=== PATIENT | female | born 2000 | race Caucasian/White ===

== ENCOUNTER 2023-06-28 20:09 | Emergency (ER) | payer SELFPAY ==
[2023-06-28 20:10] VITALS: BP 127/82; PULSE 91; RESP 16; TEMP 36.6; O2SAT 98; BMI 21.4
--- NOTE | 2023-06-28 20:58 | EDS_ITS ---
HPI HPI - GI History of Present Illness Chief Complaint: Abd Pain Informant: patient Narrative Narrative: Patient is a 22-year-old female with history of miscarriage in August 2022 as well as marijuana use presenting with 1 week of upper abdominal pain. She states it has been worsening and now when she stands up she feels that there is increased pressure in her upper abdomen. She notes sometimes she does feel a ball of something in her right mid abdomen but she will push it and I will go away. She not sure what to think about. That is not painful. She has had some mild nausea but no vomiting. She is she has daily bowel movements but they are little bit hard however she describes them as normal . She denies any fever. She recently relocated to the area from outside the [facility] and does not have a PCP at this time. She does also report dysuria for the past 2 days and has been having some vaginal spotting. Her last menstrual period was about 3 weeks ago and she does not know if she is or not. She does not currently have an ELECTION CLERK. Denies any concern for STIs but notes that her vaginal discharge has been slightly more pronounced. No other complaints or concerns reported at this time. [facility] Medical History Anemia Anxiety Depression Home Medications famotidine 20 mg tablet (Pepcid) 20 mg PO BID #30 tabs 06/28/23 [Rx Last Taken Unknown] nitrofurantoin monohydrate/macrocrystals 100 mg capsule (Macrobid) 100 mg PO Q12H 3 days #6 caps 06/28/23 [Rx Last Taken Unknown] Allergy/AdvReac Type Severity Reaction Status Date / Time coconut Allergy RASH Verified 06/28/23 20:12 Family History Father Acid reflux Social History Smoking Status: Current every day smoker tobacco type: e-cigarettes ROS ROS ED Constitutional Constitutional ED: Denies chills or fever(s) Cardiovascular Cardiovascular: Denies chest pain Respiratory/Chest Respiratory/Chest: Denies cough Gastrointestinal Gastrointestinal: Reports abdominal pain and nausea; Denies constipation or vomiting Genitourinary Genitourinary ED: Reports dysuria; Denies hematuria or urinary frequency Musculoskeletal Musculoskeletal: Denies arthralgias, back pain or myalgias Integumentary Denies rash Neurologic Neurologic: Denies headache(s) Psychiatric Psychiatric: Reports anxiety Hematologic/Lymphatic Hematologic/Lymphatic: Denies easy bleeding EXAM Physical Exam Const Vital Signs: 06/28/23 20:10 06/28/23 22:09 Temperature 97.8 F Temperature Source Temporal Pulse Rate 91 72 Respiratory Rate 16 16 Blood Pressure 127/82 H Blood Pressure Mean 97 Pulse Ox 98 99 Oxygen Delivery Method Room Air Room Air Positive well nourished and well developed General Appearance ED: well developed and NAD; Negative for pallor HEENT Reports moist mucous membranes Eyes PERRL Neck supple Resp normal respiratory effort and clear to auscultation bilaterally Cardio regular rate and regular rhythm GI non-distended GI Narrative: Negative Priest sign, no pain at McBurney's point Auscultation: normoactive bowel sounds Palpation: soft and tender epigastric; Negative for guarding, rigid or rebound tenderness present Back/Spine no CVA tenderness Extremity full ROM Neuro moves all extremities Sensorium / Orientation: alert Motor Exam: Negative for general weakness Psych mental status grossly normal and thought process normal Mood & Affect: anxious Skin no wounds General Skin Exam: Negative for jaundice or pallor MDM MDM MDM Narrative Medical decision making narrative: Patient evaluated for 1 week of this vague epigastric pain as well as 2 days of dysuria. Differential includes urinary tract infection, constipation, pancreatitis, peptic ulcer disease, less likely small bowel obstruction as patient has no risk factors or history of any abdominal surgeries. Lab work largely normal. Patient does have what appears to be microcytic anemia however she is aware of a history of anemia. She notes that she has heavy menstrual cycles. CMP and lipase normal. Serum is negative. Urinalysis is concerning for possible UTI with 5-10 white blood cells and 1+ bacteria however there is some slight contamination. Will send for culture and start on Macrobid. Patient instructed to start taking [id number] iron supplements to help with her anemia. Abdominal x-ray is obtained as her lab work is largely normal and this shows a nonobstructive bowel gas pattern. Patient be placed on H2 hyun to help with her abdominal pain as this could be reflux related. Is given referral for PCP as well as ELECTION CLERK. Given return precautions. At this time do not think patient requires further observation, imaging or surgical consult for her epigastric abdominal pain. She is agreeable this plan of care. Discharged home in stable condition. Lab Data Attestation: I reviewed the patient's lab results. Labs: Laboratory Results - last 24 hr 06/28/23 06/28/23 21:18 21:20 WBC 5.5 RBC 4.30 Hgb 9.3 L Hct 32.2 L MCV 74.9 L MCH 21.6 L MCHC 28.9 L RDW Std Deviation 39.7 RDW Coeff of Mitchell 14.6 Plt Count 277 MPV 11.3 Immature Gran % (Auto) 0.200 Neut % (Auto) 70.0 Lymph % (Auto) 21.4 Wilkinson % (Auto) 7.3 Eos % (Auto) 0.2 Baso % (Auto) 0.9 Absolute Neuts (auto) 3.8 Absolute Lymphs (auto) 1.17 Nucleated RBC % 0 Sodium 138 Potassium 3.6 Chloride 108 H Carbon Dioxide 24.0 Anion Gap 6 BUN 11 Creatinine 0.79 Estim Creat Clear Calc 118.05 Est GFR (MDRD) Af Amer 119 Est GFR (MDRD) Non-Af 98 BUN/Creatinine Ratio 13.9 Glucose 85 Calcium 9.2 Total Bilirubin 0.40 AST 18 ALT 18 Alkaline Phosphatase 55 Total Protein 7.5 Albumin 4.1 Globulin 3.4 Albumin/Globulin Ratio 1.2 Lipase 19 Serum , Qual NEGATIVE Urine Color Yellow Urine Clarity Clear Urine pH 6.0 Ur Specific [place] 1.010 Urine Protein 15 H Urine Glucose (UA) Normal Urine Ketones 50 H Urine Occult Blood 250 H Urine Nitrite Negative Urine Bilirubin Negative Urine Urobilinogen Normal Ur Leukocyte Esterase 100 H Urine RBC 0-5 SEEN Urine WBC 5-10 SEEN Ur Squamous Epith Cells 0-5 SEEN Urine Bacteria 1+ Urine Mucus 0 SEEN Radiography Diagnostic Testing: Clinical Impression(s) from Imaging Studies Abdomen X-Ray 06/28/23 22:20 IMPRESSION: Non-obstructive bowel gas pattern. Electronically Signed: Juan R Emmanuel MD at 23:28 EDT , Differential Diagnosis Abdominal Pain: Appendicitis Reason(s) appendicitis less likely: Positive for clinical exam does not supportclinical exam does not support, Pancreatitis Reason(s) Pancreatitis less likely: clinical exam does not support and NL lab values, Bowel obstruction Reason(s) bowel obstruction less likely: bowel sounds present on exam and UTI Discharge Plan Triage Chief Complaint: Abd Pain ED Provider: Susan Thurston Dx/Rx/DC Orders Clinical Impression: UTI (urinary tract infection), Upper abdominal pain, Anemia Instructions: ED Anemia, Type Not Specified (Adult), ED Cystitis Female Adult, ED Epigastric Pain Uncertain Cause Prescriptions: New famotidine [Pepcid] 20 mg tablet 20 mg PO BID Qty: 30 0RF nitrofurantoin monohyd/m-cryst [Macrobid] 100 mg capsule 100 mg PO Q12H 3 Days Qty: 6 0RF Rx Instructions: must administer with a meal/food Primary Care Provider: Care Physician,No Primary Referrals: Harjit Block, DO [Med Staff - Embalmer Assistant] - As soon as possible Angélica Miranda MD [Med Staff - Active Staff] - As Needed NOT,DEFINED [Non-Staff] - Activity Restrictions/Additional Instructions: Your lab work showed what is concerning for an iron deficiency anemia. I recommend starting to take a daily iron supplement. Please follow-up with ELECTION CLERK as well as with the family doctor. You been given referral for both. I suspect your pain is caused by irritation of your stomach and you have been started on an antacid for this. Please return the emergency if you have a progression or worsening of your symptoms. Disposition Disposition: Home, Self Care
[2023-06-28 21:24] LABS: Mucous, Urine 0 SEEN /hpf (<or=2+)
[2023-06-28 21:26] LABS: Absolute Lymphocyte Count 1.17 X10^3/uL (0.83-4.51); Absolute Neutrophil Count 3.8 X10^3/uL (2.0-7.7); Basophil# 0.05 X10^3/uL; Basophil% 0.9 % (0-1); Eosinophil# 0.01 X10^3/uL; Eosinophils% 0.2 % (0-5); Hematocrit 32.2 % (37-47); Hemoglobin 9.3 g/dL (12.0-15.0); Lymphocyte # 1.17 X10^3/ul (0.83-4.51); Lymphocyte % 21.4 % (19-41); Mean Corp Hgb Conc 28.9 g/dL (32-36); Mean Corpuscular Hgb 21.6 pg (27.0-32.0); Mean Corpuscular Volume 74.9 fL (81-99); Mean Platelet Vol. 11.3 fl (6.2-12.0); Monocyte% 7.3 % (0-10); NRBC Flagged by Analyzer 0 % (0-5); Neutrophil # 3.83 X10^3/uL (2.7-7.7); Platelet Count 277 K/mm3 (150-450); RBC Distribution Width CV 14.6 % (11.6-14.6); RBC Distribution Width SD 39.7 fl (35.1-43.9); White Blood Count 5.5 K/mm3 (4.4-11.0)
[2023-06-28 21:28] LABS: Color, Urine Yellow (Yellow); Glucose, Dipstick Normal (Normal); Ketone-Dipstick 50 mg/dl (Negative); Leukocyte Esterase-Dipstick 100 /ul (Negative); Nitrite-Dipstick Negative (Negative); Occult Blood-Urine 250 /ul (Negative); Protein-Dipstick 15 mg/dl (Negative); Urine Bilirubin Dipstick Negative (Negative); Urine Clarity Clear (Clear); Urine Urobilinogen Normal (Normal)
[2023-06-28 21:38] LABS: Internal QC Validated? YES +Cl - CLEAR BKGD; Pregnancy, Serum, hCG Quali. NEGATIVE Negative
[2023-06-28 21:38] LABS: Bacteria 1+ /hpf (None Seen); Red Blood Cells-Urine 0-5 SEEN /hpf (0-5); Squamous Epithelial Cells - UA 0-5 SEEN /hpf (5-10); White Blood Cells 5-10 SEEN /hpf (0-5)
[2023-06-28 21:44] LABS: ALB/GLOB Ratio 1.2 RATIO (0.9-2.4); AST(SGOT) 18 U/L (15-37); Alanine Aminotransfer ALT/SGPT 18 U/L (13-56); Albumin, Serum 4.1 g/dL (3.2-5.0); Alkaline Phosphatase 55 U/L (45-117); Anion Gap 6 (5-15); BUN 11 mg/dL (7-18); BUN/Creat Ratio 13.9 RATIO (10-20); Calcium,Total 9.2 mg/dL (8.5-10.1); Chloride 108 mmol/L (98-107); Creatinine, Serum 0.79 mg/dL (0.55-1.02); EST Glomerular Filtration Rate 98 mL/min (>60); Est Glom Filt Rate - Afr Amer 119 mL/min (>60); Estimated Creatinine Clearance 118.05 ml/min; Globulin 3.4 g/dL (2.2-4.2); Glucose 85 mg/dL (74-106); Lipase 19 U/L (13-75); Potassium 3.6 mmol/L (3.5-5.1); Protein, Total 7.5 g/dL (6.4-8.2); Sodium Level 138 mmol/L (136-145)
[2023-06-28 22:09] VITALS: PULSE 72; RESP 16; O2SAT 99
--- NOTE | 2023-06-28 22:20 | RAD_ITS ---
INDICATION: abd pain EXAMINATION/TECHNIQUE: X-RAY - XR Abdomen W/ Decub and/or Erect Views: 4 image upright and supine abdominal radiograph COMPARISON: None FINDINGS: BOWEL GAS PATTERN: Nonspecific non-obstructive bowel gas pattern. No focal stomach or bowel distention. FREE AIR: No pneumoperitoneum ORGANOMEGALY: Not seen. CALCIFICATIONS: No concerning calcifications. LOWER CHEST: No acute pathology. BONES AND SOFT TISSUES: No acute pathology. RAD/Abd Inc Decub and/or Erect IMPRESSION: Non-obstructive bowel gas pattern. Electronically Signed: Juan R Emmanuel MD at 23:28 EDT ,
[2023-06-29] VITALS: PULSE 72; RESP 16; O2SAT 99
== END 2023-06-29 00:30 | disposition home or self-care (01) ==
PROVIDERS: Emergency Provider Emergency Medicine; Visit Provider Emergency Medicine
DX: N39.0 Urinary tract infection, site not specified (principal); D64.9 Anemia, unspecified; F17.290 Nicotine dependence, other tobacco product, uncomplicated; R30.0 Dysuria; R11.0 Nausea; N89.8 Other specified noninflammatory disorders of vagina; Z79.899 Other long term (current) drug therapy; R10.10 Upper abdominal pain, unspecified
CPT/HCPCS: 74019; 80053; 81001; 83690; 84703; 85025; 87086; 87088; 99283; A4216